=== PATIENT | female | born 1965 | race Two or more races ===

== ENCOUNTER 2023-10-14 07:33 | Day surgery (SDC) | payer BC ==
[~2023-10-14 07:33] MED LIST: EPINEPHrine 1 MG/ML SDV ONE; Ropivacaine 0.5% 5 MG/ML 30 ML SDV ONE; Sodium Chloride 0.9% 10 ML Syringe FLUSH PRN; Sodium Chloride 0.9% 10 ML Syringe FLUSH SCH; dexmedeTOMIDine HCl 200 MCG/2 ML SDV ONE
[2023-10-14] MEDS: Lactated Ringers 1,000 ML IV SCH (08:00)
[2023-10-14] MEDS ORDERED: Magnesium Sulfate/Water 2 GM in Premix Bag 1 BAG IV ONE (08:15)
[2023-10-14] MEDS ORDERED: Magnesium Sulfate (4.06 MEQ/ML) 5 GM/10 ML SDV IV ONE (08:15)
[2023-10-14] MEDS ORDERED: Lactated Ringers 1,000 ML ONE (08:17)
[2023-10-14] MEDS ORDERED: ceFAZolin 2 GM Vial ONE ×2 (08:17→08:18)
[2023-10-14] MEDS ORDERED: fentaNYL 100 MCG/2 ML SDV ONE ×2 (08:17→10:09)
[2023-10-14] MEDS ORDERED: Midazolam 1 MG/ML 2 ML SDV ONE (08:17)
[2023-10-14] MEDS ORDERED: Propofol 200 MG/20 ML SDV ONE (08:17)
[2023-10-14] MEDS ORDERED: Dexamethasone 4 MG/ML 5 ML MDV ONE (08:18)
[2023-10-14] MEDS ORDERED: Ondansetron 4 MG/2 ML SDV ONE (08:18)
[2023-10-14] MEDS ORDERED: Ketorolac 30 MG/ML SDV ONE (08:18)
[2023-10-14] MEDS ORDERED: dexmedeTOMIDine HCl 200 MCG/2 ML SDV ONE (08:22)
[2023-10-14] MEDS ORDERED: Ketamine 500 mg/10 ML MDV ONE (08:22)
[2023-10-14] MEDS ORDERED: Lidocaine 1% PF 2 ML SDV ONE ×2 (09:30→10:00)
[2023-10-14] MEDS ORDERED: ePHEDrine 50 MG/ML SDV ONE (09:35)
[2023-10-14] MEDS ORDERED: oxyCODONE 5 MG Tab PO PRN ×2 (10:07→10:16)
[2023-10-14] MEDS: Morphine 8 MG, EPINEPHrine 0.3 MG, Cefuroxime 750 MG, Ketorolac 30 MG, Sodium Chloride ... PRN (10:41)
[2023-10-14] MEDS ORDERED: Ondansetron 4 MG/2 ML SDV IVPUSH PRN (10:49)
[2023-10-14] MEDS: Tranexamic Acid 1,000 MG/10 ML Vial ONE (10:49)
[2023-10-14] MEDS: Vancomycin 1 GM SDV ONE (10:49)
[2023-10-14] MEDS ORDERED: fentaNYL 100 MCG/2 ML SDV IVPUSH PRN (10:49)
[2023-10-14] MEDS: Triamcinolone Acetonide 40 MG/ML 1 ML SDV ONE (11:06)
[2023-10-14] MEDS: Bupivacaine 0.25% 10 ML SDV ONE (11:06)
[2023-10-14] MEDS: HYDROmorphone 0.5 MG/0.5 ML Syringe IVPUSH PRN (11:34)
[2023-10-14] MEDS: oxyCODONE 5 MG Tab PO PRN (15:37)
== END 2023-10-14 16:25 | disposition home or self-care (01) ==
LOC: JD.SDS 07:33
PROVIDERS: ATTEND Orthopaedic Surgery
DX: M17.0 Bilateral primary osteoarthritis of knee (principal); I25.10 Atherosclerotic heart disease of native coronary artery without angina pectoris; E78.5 Hyperlipidemia, unspecified; I10 Essential (primary) hypertension; F41.9 Anxiety disorder, unspecified; Z79.899 Other long term (current) drug therapy; Z86.16 Personal history of COVID-19; Z79.82 Long term (current) use of aspirin
CPT/HCPCS: 0055T; 20610; 27447; 64447; 73560; 97110; 97161; A9270; C1713; C1776; J0171; J0665; J0690; J0697; J1100; J1170; J1596; J1885; J2250; J2270; J2405; J2704; J2795; J3010; J3301; J3370; J3475; J3490; J7120; 01402